=== PATIENT | male | born 1945 | race Caucasian/White ===

== ENCOUNTER 2020-06-26 02:04 | Emergency (ER) | payer MEDICARE, OTHER ==
[2020-06-26 02:35] LABS: BILIRUBIN NEGATIVE (NEGATIVE); BLOOD NEGATIVE Ery/uL (NEGATIVE); CLARITY CLEAR (CLEAR); COLOR YELLOW (YELLOW); GLUCOSE (U) NORMAL (NORMAL); LEUKOCYTES NEGATIVE Leu/uL (NEGATIVE); NITRITE NEGATIVE (NEGATIVE); PROTEIN TRACE (LOW) mg/dL (NEGATIVE); SPECIFIC GRAVITY >=1.030 (1.001-1.030); UROBILINOGEN 0.2 mg/dL (0.2-1.0)
[2020-06-26 02:38] LABS: SQUAMOUS EPITHELIAL CELLS RARE
[2020-06-26 02:40] LABS: INR 1.12 (0.9-1.2); PROTHROMBIN TIME 13.7 SECONDS (11.4-13.6); PTT 30.3 SECONDS (22.2-34.7)
[2020-06-26 02:41] LABS: D-DIMER 0.7 ug/mLFEU (0.00-0.41)
[2020-06-26 02:50] LABS: IRON % SATURATION 16.7 %SAT (20-50)
[2020-06-26 02:55] LABS: BASOPHIL 0.8 % (0-2); EOSINOPHIL 2.9 % (0-7); HCT 37.6 % (42.0-52.0); HGB 12.8 g/dl (13.2-18.0); LYMPHOCYTE 42.1 % (15-48); MCH 31.9 pg (25.0-31.0); MCV 93.8 fL (78.0-100.0); MONOCYTE 7.4 % (0-12); MPV 10.3 fL (6.0-9.5); NEUTROPHIL 46.4 % (41-80); NRBC 0; PLT 194 K/uL (150-400); RBC 4.01 M/uL (4.70-6.00); RDW 12.9 % (11.5-14.0); WBC 5.1 K/uL (4.0-10.5)
[2020-06-26 02:57] LABS: ALBUMIN 3.5 g/dL (3.4-5.0); BILIRUBIN - TOTAL 0.4 mg/dL (0.2-1.0); BUN/CREAT RATIO (CALC) 20.8 RATIO; CREATININE 0.77 mg/dL (0.67-1.17); GLOBULIN (CALCULATION) 3.1 g/dL; MAGNESIUM 2.1 mg/dL (1.8-2.4); PHOSPHORUS 2.9 mg/dL (2.6-4.7); POTASSIUM 3.5 mmol/L (3.5-5.1); TOTAL PROTEIN 6.6 g/dL (6.4-8.2)
== END 2020-06-26 05:00 | disposition home or self-care (01) ==
LOC: FER 02:04
PROVIDERS: Emergency Medicine
DX: R56.9 Unspecified convulsions (principal); U07.1 COVID-19; I10 Essential (primary) hypertension; F03.90 Unspecified dementia, unspecified severity, without behavioral disturbance, psychotic disturbance, mood disturbance, and anxiety; Z85.46 Personal history of malignant neoplasm of prostate; Z88.0 Allergy status to penicillin; Z88.5 Allergy status to narcotic agent; Z88.1 Allergy status to other antibiotic agents; Z79.899 Other long term (current) drug therapy; Z79.82 Long term (current) use of aspirin
CPT/HCPCS: 36415; 70450; 71045; 71250; 80053; 81001; 82550; 83540; 83550; 83605; 83735; 84100; 84145; 84443; 84484; 85025; 85379; 85610; 85730; 93005; U0002